=== PATIENT | male | born 1995 | race Two or more races ===

== ENCOUNTER 2021-12-13 01:17 | Emergency (ER) | payer OTHER, SELFPAY ==
[2021-12-13 01:18] VITALS: BP 127/85; PULSE 88; RESP 18; TEMP 36.5; O2SAT 99
--- NOTE | 2021-12-13 02:24 | ED.ABDPAIN ---
HPI - Abdominal Pain General Chief Complaint: Abdominal Pain Stated Complaint: abd pain Time Seen by Provider: 12/13/21 01:58 Source: patient Mode of arrival: ambulatory Limitations: no limitations History of Present Illness HPI narrative: This is a 26 year old [place] male who presents for evaluation of nausea, vomiting and abdominal pain. Patient states he had episode of emesis and mid abdominal pain approximately 9 pm. He states he was feeling better but just prior to arrival he developed abdominal pain again with emesis. His emesis is nonbloody, nonbilious. He describes is abdominal pain as migratory cramping, and it has currently resolved. He also denies nausea currently. He denies fever, chills, diarrhea, cough, sob. He denies sick contacts. He thinks this may be related to food that he ate. Related Data Allergies Allergy/AdvReac Type Severity Reaction Status Date / Time No Known Allergies Allergy Verified 12/13/21 01:21 Review of Systems Review of Systems: All systems reviewed & are unremarkable except as noted in HPI and below Constitutional: Constitutional: Denies chills and Denies fatigue ENT: Denies dizziness and Denies nasal congestion Respiratory: Respiratory: Denies chest congestion Gastrointestinal: Gastrointestinal: Reports abdominal pain, Denies constipation, Denies diarrhea, Reports nausea and Reports vomiting Genitourinary: Genitourinary: Denies hematuria, Denies oliguria and Denies urinary frequency Musculoskeletal: Musculoskeletal: Denies back pain PMFSH Past Medical History Medical History (Updated 12/13/21 @ 04:12 by Ana Grimaldo MD) Patient denies medical problems Surgical History Surgical History (Updated 12/13/21 @ 02:28 by Ana Grimaldo MD) No pertinent past surgical history Social History Social History (Updated 12/13/21 @ 02:28 by Ana Grimaldo MD) Smoking status: Never smoker Exam Const: General: healthy appearing and alert Nutritional Appearance: well nourished Orientation/consciousness: patient oriented x3 Limitations: no limitations HENMT: Head: normal to inspection Eyes: EOM: EOMs intact bilaterally Chest: Chest palpation & inspection: normal inspection of the chest Resp: Effort & Inspection: normal respiratory effort, not labored and no retractions Auscultation: clear to auscultation bilaterally and breath sounds present Cardio: Rate: regular rate Rhythm: regular rhythm Heart sounds: no murmurs GI: GI Palp: Yes Soft to palpation, No Tenderness to palpation present (GI), No Guarding due to palpation present (GI), No Rigid due to palpation and No Hernia present Auscultation: normal bowel sounds Back/Spine/Pelvis: Back: no CVA tenderness Skin: General skin exam: normal color Neuro: General: patient oriented x3, moves all extremities and CN's II-XI intact bilaterally Extrem: General: normal to inspection Psych: Mental Status: mental status grossly normal Affect: normal affect Course Reevaluation(s) Reevaluation #1: I Discussed with patient that labs show leukocytosis. He states he feels fine and he does not have pain at and he is not nauseous. His leukocytosis is likely due to stress response. I discussed option of CT scan to rule out infection such as appendicitis. Patient's abdomen is benign. He would like to not get CT at this time. He was given strict return precautions. I think it is reasonable to discharge as he has normal exam at this time. Date: 12/13/21 Time: 04:09 Vital Signs Vital signs: Vital Signs Temperature 97.7 F 12/13/21 01:18 Pulse Rate 88 12/13/21 01:18 Respiratory Rate 18 12/13/21 01:18 Blood Pressure 127/85 12/13/21 01:18 Pulse Oximetry 99 12/13/21 01:18 Oxygen Delivery Room Air 12/13/21 01:18 Temperature 97.7 F 12/13/21 01:18 Pulse Rate 75 12/13/21 03:38 Respiratory Rate 16 12/13/21 03:38 Blood Pressure 113/80 12/13/21 03:38 Pulse Oximetry 98 12/13/21
[2021-12-13 02:30] LABS: Basophils Absolute Auto 0.1 K/mm3 (0.0-0.1); Basophils Percent Auto 0.3 % (0.2-1.2); Eosinophils Percent Auto 0.3 % (0-4.4); Hematocrit 50.7 % (42.0-52.0); Hemoglobin 16.6 g/dL (14.0-18.0); Immature Granulocyte Absolute 0.04 K/mm3 (0.00-0.031); Immature Granulocyte Percent A 0.3 % (0-0.5); Lymphocytes Absolute Auto 1.02 K/mm3 (0.9-3.2); Mean Corpuscular HGB Conc 32.7 g/dl (32-36); Mean Corpuscular Hemoglobin 28.2 pg (26-34); Mean Corpuscular Volume 86.1 fl (80-100); Mean Platelet Volume 9.8 fl (7.4-10.4); Monocytes Absolute Auto 0.6 K/mm3 (0.1-0.6); Monocytes Percent Auto 4.4 % (2.6-8.5); Neutrophils Absolute Auto 12.7 K/mm3 (1.3-6.7); Neutrophils Percent Auto 87.7 % (45.5-73.1); Platelet Count Result 286 k/mm3 (150-375); Red Blood Count 5.89 M/mm3 (4.6-6.20); White Blood Count 14.5 K/mm3 (4.5-10.0)
[2021-12-13 02:33] LABS: Appearance Urine Clear (Clear); Bilirubin Urine Negative (Negative); Blood Urine Negative (Negative); Color Urine Yellow (Yellow); Glucose Urine UA Negative (Negative); Ketones Urine Negative (Negative); Leukocyte Esterase Ur Negative LEU/UL (Negative); Nitrate Urine Negative (Negative); Protein Urine Negative (Negative); Specific Grav Ur 1.025 (1.001-1.035); Urobilinogen Urine 0.2 mg/dL (<2.0)
[2021-12-13 02:34] LABS: Add Urine Microscopic? NO
[2021-12-13 02:40] LABS: Alanine Aminotransferase 158 U/L (6-50); Albumin Level 5.2 g/dL (3.5-5.1); Alkaline Phosphatase 100 U/L (38-126); Anion Gap 9 mmol/L (8-16); Aspartate Amino Transferase 62 U/L (17-59); Bilirubin,Total 1.2 mg/dL (0.2-1.3); Blood Urea Nitrogen 15 mg/dL (9-20); Calcium 9.7 mg/dL (8.4-10.2); Carbon Dioxide 31 mmol/L (22-30); Chloride 101 mmol/L (98-107); Estimated CRCL calculation 93 ml/min; Estimated Glomerular Filt Rate > 60; Glucose 109 mg/dL (65-110); Lipase 78 U/L (23-300); Sodium 141 mmol/L (137-145)
[2021-12-13 03:38] VITALS: BP 113/80; PULSE 75; RESP 16; O2SAT 98
[2021-12-13 06:04] LABS: Hepatitis B Surface Antigen Negative (Negative)
[2021-12-13 06:10] LABS: HAV RESULT Negative (Negative); Hepatitis B Core IgM Result Negative (Negative)
[2021-12-13 06:22] LABS: Hepatitis C Virus Antibody Negative (Negative)
== END 2021-12-13 04:27 | disposition home or self-care (01) ==
PROVIDERS: Emergency Provider General Practice
DX: R11.2 Nausea with vomiting, unspecified (principal); D72.829 Elevated white blood cell count, unspecified
CPT/HCPCS: 36415; 80053; 80074; 81003; 83690; 85025; 99283